=== PATIENT | male | born 1950 | race Caucasian/White ===

== ENCOUNTER 2019-01-13 12:50 | Emergency (ER) | payer MEDICARE, OTHER, SELFPAY ==
[2019-01-13 12:51] VITALS: BP 102/67; PULSE 116; RESP 18; TEMP 36.6; O2SAT 98; BMI 28.8
--- NOTE | 2019-01-13 13:45 | ED.VIS.GEN ---
History of Present Illness Chief Complaint: Constipation Informant: Patient Onset: Days - 12 Context: Gradual Onset Timing: Continuous Current Severity: Moderate Maximum Severity: Moderate Narrative: Patient presents with constipation. He had back surgery 2 weeks ago. He has not had a bowel movement in a few days in fact he is only had 2 bowel movement since surgery. He has been on quite a few opiates. He denies any abdominal pain, nausea or vomiting fever or chills. Prior similar symptoms: No Past Medical History - Allergies and Home Meds Allergies/Adverse Reactions: Allergies No Known Allergies Allergy (Verified 01/13/19 12:54) Past Medical History: - - Reviewed Surgical History: - - Back surgery 12 days ago as in HPI Lives: Spouse/ Significant Other Review of Systems General: Denies: Fever Eyes: Denies: Visual changes - left Cardiovascular: Denies: Chest pain, Palpitations Respiratory: Denies: Dyspnea, Cough Gastrointestinal: Reports: Constipation. Denies: Abdominal pain, Nausea Genitourinary: Denies: Dysuria Musculoskeletal: Reports: Back pain Neurological: Denies: Weakness Hematologic: Denies: Easy bruising Physical Exam Vital Signs/Narrative: Vital Signs Temp Pulse Resp BP Pulse Ox 01/13/19 12:51 98 F 116 H 18 102/67 98 General: Well nourished, Well developed, - - He is standing up, ambulating with his back slightly bent, he appears in slight distress Head: Normocephalic, Atraumatic Cardiovascular: Regular rate, Regular rhythm Respiratory: No distress, CTA bilaterally Abdomen: Soft, Nontender Rectal: - - Stool impaction Back: - - Spinal tenderness, posterior incision is intact no signs of cellulitis Skin: No rash Neurological: Alert, Oriented x3 Diagnostic/Tx/Re-eval - Medical Decision Making Patient was disimpacted. He did tolerate the procedure. He felt significantly improved I will discharge him in stable condition. ED Disposition - Plan for ED Patient: Diagnosis: Constipation Instructions: CONSTIPATION (Adult), FECAL IMPACTION, Treated Prescriptions: Polyethylene Glycol 3350 [Miralax] 17 gm PO DAILY #6 packet Prescription Printed
== END 2019-01-13 14:18 | disposition home or self-care (01) ==
PROVIDERS: Emergency Provider Emergency Medicine; Family Provider Family Medicine; PCP Family Medicine
DX: K59.00 Constipation, unspecified (principal)
CPT/HCPCS: 99282

== ENCOUNTER 2019-04-28 14:30 | Outpatient (RCR) | payer MEDICARE, OTHER, SELFPAY ==
--- NOTE | 2019-02-05 15:49 | HP.PTEVAL_ITS ---
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 Date of Evaluation: 02/05/19 Physical Therapist: Fabiana Montano, PT, Cert MDT - Visit Plan Frequency: 2-3x /Week Duration: 4-6 Weeks Plan: POSTURE CORRECTION/STRENGTHENING, INSTRUCTION IN APPROPRIATE BODY MECHANICS AND ACTIVITY MODIFICATIONS. DLS STARTING WITH A NEUTRAL SPINE PROGRESSING ROM TOLERATED. ABBI LE ROM, STRETCHING AND STRENGTHENING. HEP INSTRUCTION. *NO LIFTING, BENDING, PUSHING, PULLING, TWISTING AND OVER HEAD EXTENSION FOR 3 WEEKS. 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 SOME PHYSICAL WORK AND SOME OFFICE WORK. CURRENTLY MAINLY JUST DOING OFFICE WORK. MUSICIAN. Disability: NO. Present symptoms: NO LOW BACK PAIN. INTERMITENT ABBI HIP/THIGH SORENESS. NO NUMBNESS OR TINGLING. Present since: YEARS (APPROX SEPTEMBER 2018 INCREASED SX'S REACHING FOR DOG). Pain Scale: WORST 3/10, LEAST 0/10. Currently: 0/10. Commenced as a result of: REPETATIVE BENDING, LIFTING, TWISTIING. Symptoms at onset: RIGHT THIGH BURNING AND TINGLING. Worse: STANDING IN ONE SPOT, WALKING - MORE SOME TIMES THAN OTHERS, WALKING TOO FAST, WALKING TOO FAR OR LONG. Better: SITTING, ADVIL, ICE. Disturbed sleep: NO. Previous history/Previous treatment: NO OTHER BACK SURGERIES. NO LUPE'S. PHYSICAL THERAPY WITHIN THE PAST YEAR FOR LOW BACK PAIN AT [facility] - SOME IMPROVEMENT BUT DAY AFTER HE STOPPED PT HE HURT HIS BACK LIFTING HIS DOG - THEN MRI AND SURGERY. Coughing/sneezing/straining: NO. Gait: DISTANCE LIMITED, TIME LIMITED AND NOT FAST. LEFT KNEE WEAKER THAN RIGHT (HURT LEFT KNEE IN FOOTBALL LONG TIME AGO). Difficulty initiating urinatin: NO. Accidents: UNREMARKABLE. Unexplained weight loss: NO. Imaging: MRI BEFORE SURGERY SHOWED HNP. PMH: UNREMARKABLE. Recent major surgery: NO. PLOF (Prior Level of Function): LIMITED FOR SEVERAL YEARS IN TERMS OF STANDING, BENDING, LIFTING AND TWISTING. - Objective Sitting/Standing Posture: POOR. Lordosis: REDUCED. Lateral shift: NO. Active Correction of posture: NE. Other Observations: INDEP GAIT INTO PT WITH LUMBAR BRACE, FAIR CADANCE AND FAIR POSTURE. NO LOB. Motor deficit: ABBI LE STRENGTH 5/5 WITH MMT'ING EXCEPT RIGHT HIP 4/5, LEFT HIP 4-/5 AND LEFT KNEE 4/5. Sensory deficit: NO. ROM deficit: VERY TIGHT ABBI HS'S AND GASTROC SOLEUS COMPLEX'S. Reflexes: 1/2 ABBI LE'S. Dural Signs: NEGATIVE. Lumbar mvmt loss: NT. Core strength: POOR. Palpation: INCISION LOOKS GOOD WITHOUT ANY SIGNS OF INFECTION. - Goals Goal 1:: DECREASE C/O ABBI LE SX'S. Goal Time Frame: 4-6 Weeks Goal 2:: IMPROVE BENDING, LIFTING, WALKING, SITTING, STANDING, SOCIAL LIFE, TRAVEL AND WORK FUNCTION Goal Time Frame: 4-6 Weeks Goal 3:: INSTRUCT IN PROPHYLAXIS Goal Time Frame: 4-6 Weeks - Rehabilitation Potential Rehabilitation Potential: Good - Anticipated Interventions Patient/Client Instruction: Educate patient on: Condition, Plan of Care, Risk Factors, Benefits of Fitness Program For the Purpose of:: To improve self management Therapeutic Exercise to Include: Strength training, Endurance training, Body mechanics, Postural training, Flexibilty training, Dynamic Lumbar Stabilization For the Purpose of:: To decrease pain, To increase ROM, To improve muscle performance and motor function, To increase tolerance to activity/condition/position, To improve ability of physical actions for home/community/work/leisure, To improve gait and locomotor functions Thank you for the opportunity to evaluate your patient. For Medicare and Medicare HMO plans, please review the plan of care and approve it. It will need to be FAXED BACK to us at [phone] for Medicare purposes. For Medicare only, by signing this I certify the plan of care. Please let me know if there are questions or concerns regarding this plan of care. Physician Signature: Date:
--- NOTE | 2019-03-03 14:54 | HP.PTREVAL ---
Lore Donahue, PROFESSOR OF VEGETABLE SCIENCE-C, It has been my pleasure to treat ELIZA BROOKS over the last 10 visits for LUMBAR HNP - S/P ABBI POST MICRO DEMP AND DISCECTOMY L345S1 01/01/19.. Please see the progress note below for an update on the physical therapy plan of care! Subjective: PATIENT REPORTS HIS LEGS ARE GETTING STRONGER. HE WAS SURPRISED HOW WEAK THEY WERE AFTER SURGERY. PATIENT REPORTS HE STILL CAN'T DO SOME THINGS LIKE GET UP AND DOWN FROM CHAIRS AND IN/OUT OF CAR. STAIRS ARE GETTING EASIER. ONLY WEARING BRACE OUT OF HOUSE NOW. LOW BACK PAIN AT WORST NOW IS 4/10 AND THAT IS WITH A LOT OF WAKLING (25 MINUTES OR MORE). Objective/Function: PATIENT IS IMPROVING AND IS A GOOD CANDIDATE TO CONTINUE PT WORKING TOWARD THE SAME GOALS WITH THE SAME POC. HE IS AGREEABLE. HE TOLERATED ALL EX'S WELL AND DEMONSTRATED AND COMMUNICATED A GOOD UNDERSTANDING OF ALL INSTRUCTIONS AFTER GIVEN. UPON EXAM TODAY: HE DEMO'S. INDEP GAIT INTO PT WITH LUMBAR BRACE, GOOD CADANCE AND FAIR POSTURE. CADANCE IS IMPROVING. NO LOB. Motor deficit: ABBI LE STRENGTH 5/5 WITH MMT'ING. Sensory deficit: NO. ROM deficit: STILL VERY TIGHT ABBI HS'S AND GASTROC SOLEUS COMPLEX'S. Dural Signs: NEGATIVE. Lumbar mvmt loss: FLEX - MOD. EXT - MITCHELL. RIGHT SG - MITCHELL. LEFT SG - MITCHELL. Core strength: POOR. Palpation: INCISION STILL LOOKS GOOD WITHOUT ANY SIGNS OF INFECTION. Plan Plan: CONT PT DECREASING TO 2 TIMES A WEEK X 4 WEEKS FOR POSTURE CORRECTION/STRENGTHENING, INSTRUCTION IN APPROPRIATE BODY MECHANICS AND ACTIVITY MODIFICATIONS. DLS STARTING WITH A NEUTRAL SPINE PROGRESSING ROM TOLERATED. ABBI LE ROM, STRETCHING AND STRENGTHENING. HEP INSTRUCTION. Goals Goal 1:: DECREASE C/O ABBI LE SX'S. Goal Time Frame: 4-6 Weeks Goal Progress: Progressing Goal 2:: IMPROVE BENDING, LIFTING, WALKING, SITTING, STANDING, SOCIAL LIFE, TRAVEL AND WORK FUNCTION Goal Time Frame: 4-6 Weeks Goal Progress: Progressing Goal 3:: INSTRUCT IN PROPHYLAXIS Goal Time Frame: 4-6 Weeks Goal Progress: Progressing Anticipated Interventions Patient/Client Instruction: Educate patient on: Condition, Plan of Care, Risk Factors, Benefits of Fitness Program For the Purpose of:: To improve self management Therapeutic Exercise to Include: Strength training, Endurance training, Body mechanics, Postural training, Flexibilty training, Dynamic Lumbar Stabilization For the Purpose of:: To decrease pain, To increase ROM, To improve muscle performance and motor function, To increase tolerance to activity/condition/position, To improve ability of physical actions for home/community/work/leisure, To improve gait and locomotor functions Please do not hesitate to contact me at [phone] by phone or if you have questions or concerns regarding this new plan of care! Sincerely, Fabiana Montano, PT, Cert MDT
--- NOTE | 2019-03-28 15:00 | HP.PTREVAL ---
Lore Donahue, SHIPPER RECEIVER-C, It has been my pleasure to treat ELIZA BROOKS over the last 18 visits for LUMBAR HNP - S/P ABBI POST MICRO DEMP AND DISCECTOMY L3-4-5-S1 on 01/01/19. Please see the progress note below for an update on the physical therapy plan of care! Subjective: PATIENT REPORTS HE REALLY FEELS LIKE HE HAS MADE A LOT OF PROGRESS THIS SECOND ROUND OF THERAPY. HE REPORTS HIS WALKING IS A LOT BETTER NOW. STATES HE CAN GO FURTHER AND FASTER. STANDING STILL WAS HORRIBLE BEFORE AND AFTER SURGERY AND IS A LOT BETTER NOW. A LITTLE BETTER WITH THE BELT ON BUT EVEN THOUGH TOUGHER WITHOUT THE BELT MUCH BETTER OVER-ALL. HE REPORTS NOTICING IMPROVED STANDING AND WALKING AT WORK FOR THINGS LIKE GETTING THE SAUCE ON THE STOVE, PAYING VENDORS, ACCEPTING DELIVERIES. DOING A LITTLE BIT OF LIFTING TOO BUT NOT PUSHING IT. OUT OF BRACE MOST OF THE TIME NOW. PATIENT REPORTS HE CAN'T REMEMBER THE LAST TIME HE WAS DOING THIS GOOD. Objective/Function: PATIENT IS IMPROVING. HE IS STARTING TO BE INDEP WITH A HEP BUT WOULD BENEFIT FROM FURHTER INSTRUCTION HE TRIES TO TRANSITION TO INDEP [employer] FOR PROGRESSIONS BASED ON ROOM FOR FURTHER IMPROVEMENT. INDEP SIT TO STAND WITHOUT UE ASSIST. PATIENT ONLY ABLE TO SLS FOR A FEW SECONDS ON EACH LEG WITHOUT UE ASSIST AND GREATER DIFFICULTY LEFT COMPARED TO RIGHT. Lumbar mvmt loss: FLEX - MOD. EXT - MITCHELL. RIGHT SG - MITCHELL. LEFT SG - MITCHELL Plan Plan: CONT PT 1X/WEEK TO CONTINUE TO PROGRESS THER EX AND HELP PATIENT TRANSITION FULLY TO INDEP EX WITH [employer]. PATIENT AGREEABLE. Goals Goal 1:: DECREASE C/O ABBI LE SX'S. Goal Time Frame: 4-6 Weeks Goal Progress: Progressing Goal 2:: IMPROVE BENDING, LIFTING, WALKING, SITTING, STANDING, SOCIAL LIFE, TRAVEL AND WORK FUNCTION Goal Time Frame: 4-6 Weeks Goal Progress: Progressing Goal 3:: INSTRUCT IN PROPHYLAXIS Goal Time Frame: 4-6 Weeks Goal Progress: Progressing Anticipated Interventions Patient/Client Instruction: Educate patient on: Condition, Plan of Care, Risk Factors, Benefits of Fitness Program For the Purpose of:: To improve self management Therapeutic Exercise to Include: Strength training, Endurance training, Body mechanics, Postural training, Flexibilty training, Dynamic Lumbar Stabilization For the Purpose of:: To decrease pain, To increase ROM, To improve muscle performance and motor function, To increase tolerance to activity/condition/position, To improve ability of physical actions for home/community/work/leisure, To improve gait and locomotor functions Please do not hesitate to contact me at [phone] by phone or if you have questions or concerns regarding this new plan of care! Sincerely, Fabiana Montano, PT, Cert MDT
--- NOTE | 2019-04-28 14:59 | HP.PTDCSUM ---
HP - PT D/C Summary It has been my pleasure to treat ELIZA BROOKS under orders from SHARMAINE Cui, for the diagnosis of LUMBAR HNP - S/P ABBI POST MICRO DEMP AND DISCECTOMY L3-4-5-S1 on 01/01/19 for a total of 22 visit(s). Discharge Date: 04/28/19 Please see the following information for a summary of their discharge status. - Subjective Subjective: PATIENT REPORTS HE IS DOING GOOD OVER-ALL. PROLONGED SITTING AND STANDING ARE STILL THE HARDEST TO TOLERATE ALTHOUGH NOW HE CAN DO EVERYTHING WITHOUT THE BRACE. - Pain Lumbar spine Pain Intensity (Out of 10): 0 Thoracic Spine Pain Intensity (Out of 10): 0 - Overall Improvement % Improvement: 80 - Objective Objective/Function: PATIENT IS INDEP WITH A GYM PROGAM AND APPROPRIATE FOR DISCHARGE AT THIS TIME. UPON EXAM TODAY: INDEP SIT TO STAND WITHOUT UE ASSIST. PATIENT NOW ABLE TO SLS FOR A FEW SECONDS ON EACH LEG WITHOUT UE ASSIST BETTER BUT GREATER DIFFICULTY LEFT COMPARED TO RIGHT. Lumbar mvmt loss: FLEX - MOD. EXT - MITCHELL. RIGHT SG - MITCHELL. LEFT SG - MITCHELL - Goals Goal 1:: DECREASE C/O ABBI LE SX'S. Goal Progress: Goal Met Goal 2:: IMPROVE BENDING, LIFTING, WALKING, SITTING, STANDING, SOCIAL LIFE, TRAVEL AND WORK FUNCTION Goal Progress: Goal Met Goal 3:: INSTRUCT IN PROPHYLAXIS Goal Progress: Goal Met - Plan Plan: D/C - D/C Information If there are questions or concerns regarding this patient's physical therapy, please feel free to call me at [phone]. Thank you for the referral of this patient. Sincerely, Fabiana Montano, PT, Cert MDT
== END 2019-04-28 19:00 | disposition home or self-care (01) ==
LOC: PT 14:30
PROVIDERS: Family Provider Family Medicine; PCP Family Medicine; Referring Provider Nurse Practitioner Acute Care; Visit Provider Nurse Practitioner Acute Care
DX: M51.26 Other intervertebral disc displacement, lumbar region (principal)
CPT/HCPCS: 97110; 97161; 97530

== ENCOUNTER 2020-07-22 06:43 | Outpatient (RCR) | payer MEDICARE, OTHER, SELFPAY ==
[2020-07-22] MEDS: COVID-19 VACC, MRNA(PFIZER)/PF 30 MCG/0.3 ML SYRINGE IM (18:01)
[2020-08-12] MEDS: COVID-19 VACC, MRNA(PFIZER)/PF 30 MCG/0.3 ML SYRINGE IM (17:34)
== END 2020-10-26 23:59 ==
LOC: IMMUN 06:43
PROVIDERS: PCP Family Medicine; Visit Provider Family Medicine
DX: Z23 Encounter for immunization (principal)
CPT/HCPCS: 0001A; 0002A; 91300

== ENCOUNTER 2023-11-08 08:22 | Emergency (ER) | payer MEDICARE, OTHER, SELFPAY ==
[2023-11-08 08:23] VITALS: BP 61/39; PULSE 76; RESP 16; TEMP 35.7; O2SAT 98
--- NOTE | 2023-11-08 08:33 | RAD_ITS ---
STUDY: X-RAY - LEFT HAND, ATTENTION THIRD FINGER REASON FOR EXAM: Male, 73 years old. INJURY TECHNIQUE: 3 view(s) of the finger were obtained. COMPARISON: None. FINDINGS: Normal metacarpal head. Normal metacarpophalangeal joint. Normal proximal phalanx. Normal middle phalanx. Normal distal phalanx. There is evidence of a dorsal dislocation of the proximal interphalangeal joint of the third digit. Normal distal interphalangeal joint. Soft tissue swelling. RAD/Finger(s) Min 2 Views IMPRESSION: Dorsal dislocation of the proximal interphalangeal joint of the third digit. Soft tissue swelling. Electronically Signed: Ernie Steven MD at 9:42 EDT ,
--- NOTE | 2023-11-08 08:33 | EKG12_ITS ---
Test Reason : PALPITATIONS Blood Pressure : / mmHG Vent. Rate : 063 BPM Atrial Rate : 063 BPM P-R Int : 144 ms QRS Dur : 086 ms QT Int : 402 ms P-R-T Axes : 013 017 050 degrees QTc Int : 411 ms Normal sinus rhythm Normal ECG Confirmed by MARA THORPE, MANUEL ([id number]), advertising editor OBI GOMEZ ([id number]) on 11/12/2023 1:30:40 PM Referred By: Confirmed By:MANUEL TERRY MD
[2023-11-08 08:51] LABS: Absolute Neutrophil Count 8.4 X10^3/uL (2.0-7.7); Basophil# 0.02 X10^3/uL; Basophil% 0.2 % (0-1); Eosinophil# 0.03 X10^3/uL; Eosinophils% 0.3 % (0-5); Hematocrit 40.5 % (40-54); Hemoglobin 13.4 g/dL (13.0-16.5); Lymphocyte % 19.1 % (19-41); Mean Corp Hgb Conc 33.1 g/dL (32-36); Mean Corpuscular Hgb 28.9 pg (27.0-32.0); Mean Corpuscular Volume 87.5 fL (80-94); Mean Platelet Vol. 9.6 fl (6.2-12.0); Monocyte# 0.82 X10^3/uL; Monocyte% 7.1 % (0-10); NRBC Flagged by Analyzer 0 % (0-5); Neutrophil # 8.42 X10^3/uL (2.7-7.7); Platelet Count 217 K/mm3 (150-450); RBC Distribution Width CV 13.4 % (11.6-14.6); RBC Distribution Width SD 42.8 fl (35.1-43.9); Red Blood Count 4.63 M/mm3 (4.6-6.2); White Blood Count 11.5 K/mm3 (4.4-11.0)
[2023-11-08] MEDS: 0.9% Normal Saline (500mL Bag) 500 ML 999 ML IV (09:00)
--- NOTE | 2023-11-08 09:08 | RAD_ITS ---
STUDY: X-RAY CHEST REASON FOR EXAM: Male, 73 years old. WEAKNESS TECHNIQUE: Single AP portable view of the chest. COMPARISON: None. FINDINGS: EKG electrodes are seen. The lungs are clear and expanded. There is no demonstrated pleural abnormality. Normal size heart. Normal mediastinum and madina. Normal visualized pulmonary arteries. There is atherosclerotic calcification of the aortic arch with tortuosity. There are diffuse degenerative changes of the visualized thoracic spine. Normal visualized ribs, clavicles, and shoulders. There is no demonstrated abnormality of the visualized soft tissue structures of the upper abdomen. RAD/Chest 1 View (Portable) IMPRESSION: No acute abnormality is seen. Electronically Signed: Ernie Steven MD at 9:42 EDT ,
[2023-11-08 09:23] VITALS: BMI 25.1
[2023-11-08 09:25] VITALS: BP 65/49; PULSE 69; RESP 16; O2SAT 98
[2023-11-08 09:31] LABS: Anion Gap 7 (5-15); BUN 29 mg/dL (7-18); Chloride 108 mmol/L (98-107); Creatinine, Serum 1.16 mg/dL (0.70-1.30); EST Glomerular Filtration Rate 66 mL/min (>60); Est Glom Filt Rate - Afr Amer 80 mL/min (>60); Estimated Creatinine Clearance 63.18 ml/min; Glucose 114 mg/dL (74-106); Sodium Level 141 mmol/L (136-145)
[2023-11-08 09:37] VITALS: O2SAT 99
--- NOTE | 2023-11-08 10:05 | RAD_ITS ---
STUDY: X-RAY - LEFT HAND, ATTENTION THIRD FINGER REASON FOR EXAM: Male, 73 years old. Postreduction -- middle finger TECHNIQUE: 3 view(s) of the finger were obtained. COMPARISON: Comparison is made with prior study done earlier in the day. FINDINGS: Satisfactory reduction. Normal metacarpal head. Normal metacarpophalangeal joint. Normal proximal phalanx. Normal middle phalanx. Normal distal phalanx. Normal proximal interphalangeal joint. Normal distal interphalangeal joint. Soft tissue swelling. RAD/Finger(s) Min 2 Views IMPRESSION: Satisfactory reduction. Residual soft tissue swelling. Electronically Signed: Ernie Steven MD at 11:55 EDT ,
--- NOTE | 2023-11-08 10:08 | ED.VIS.FALL ---
HPI HPI - Fall History of Present Illness Chief Complaint: Fall Informant: patient and family (x2) Narrative Narrative: 73-year-old male was going to the bathroom from his bedroom he felt lightheaded and had a minor fall, family member was there with him, but he fell to the floor injuring his left middle finger. No other injury. Did not lose consciousness. He felt feet not vertiginous. Then getting out of the car while coming to the ER, he felt new disease/lightheaded again. No syncope or other injury/fall. The family states he is on Sinemet he had already taken it this morning right before this happened, oftentimes he is having low blood pressure since he has been on it for his Parkinson's. They state he typically does have dementia but he is maybe a little more confused right now than usual. Did not hit his head, this all was witnessed. He denies a headache and denies any other pain except for his middle finger. [facility] Medical History (Updated 11/08/23 @ 11:[address] Lloyd Spear MD) Parkinson disease Parkinson's disease dementia Home Medications ?Medication ?Instructions ?Recorded ?Last Taken ?Type polyethylene glycol 3350 17 gram 17 gm PO DAILY #6 packets 01/13/19 Unknown Rx oral powder packet carbidopa 25 mg-levodopa 100 mg 2 tab PO TID 11/08/23 Unknown History tablet rivastigmine 13.3 mg/24 hour 1 patch topical DAILY 11/08/23 Unknown History transdermal patch Allergy/AdvReac Type Severity Reaction Status Date / Time No Known Allergies Allergy Verified 11/08/23 08:23 Social History Smoking Status: Unknown if ever smoked ROS ROS ED Constitutional Constitutional ED: Reports weakness; Denies chills or fever(s) Eyes Eyes: Denies change in vision or diplopia ENT ENT ED: Denies rhinorrhea or sore throat Cardiovascular Cardiovascular: Denies chest pain or palpitations Respiratory/Chest Respiratory/Chest: Denies cough or dyspnea Gastrointestinal Gastrointestinal: Denies abdominal pain, diarrhea, nausea or vomiting Genitourinary Genitourinary ED: Denies dysuria or hematuria Musculoskeletal Musculoskeletal: Reports as per HPI and extremity pain; Denies back pain or neck pain Integumentary Denies abscess or rash Neurologic Neurologic: Reports confusion; Denies headache(s), paresthesias or weakness Psychiatric Psychiatric: Denies anxiety or suicidal thoughts EXAM Physical Exam Const Vital Signs: 11/08/23 08:23 11/08/23 09:25 11/08/23 09:37 Temperature 96.2 F L Temperature Source Temporal Pulse Rate 76 69 Respiratory Rate 16 16 Respiratory Effort Normal Non-Labored Respiratory Depth Normal Respiratory Pattern Normal Blood Pressure 61/39 L 65/49 L Blood Pressure Mean 46 54 Pulse Ox 98 98 99 Oxygen Delivery Method Room Air Room Air Room Air 11/08/23 10:22 11/08/23 11:00 11/08/23 11:44 Temperature 98.0 F Temperature Source Pulse Rate 70 70 70 Respiratory Rate 15 18 18 Respiratory Effort Respiratory Depth Respiratory Pattern Blood Pressure 129/84 H 143/73 H 143/73 H Blood Pressure Mean 99 96 96 Pulse Ox 100 99 99 Oxygen Delivery Method Room Air Room Air Positive well nourished and well developed General Appearance ED: well developed and NAD HEENT Reports moist mucous membranes normocephalic and atraumatic; Negative for contusion or hematoma Eyes PERRL and EOMs intact bilaterally Neck full ROM and supple Chest Wall inspection of chest normal and palpation of chest normal Resp normal respiratory effort and clear to auscultation bilaterally Cardio regular rate, regular rhythm and no murmurs GI non-tender and non-distended Auscultation: normoactive bowel sounds Palpation: soft Back/Spine no CVA tenderness General Back: other FROM Extremity Extremity Narrative: Tender deformity to the PIPJ of the left middle finger and limited range of motion due to this. Brisk cap refill distally. All other joints of all 4 extremities move without any problem. General Extremety ED: Yes tenderness; Negative for edema or pulses abnormal General Extremity: Negative for edema or pulses abnormal Neuro CN's II-XII intact bilaterally and no sensory deficits noted Sensorium / Orientation: awake, alert, oriented to person and orientation impaired; Negative for oriented to time Motor Exam: strength 5/5 throughout Skin no rashes or lesions noted and no wounds Skin Narrative: Abrasion to the left scapular area, there is no bony tenderness and he has full range of motion of the shoulder without any difficulty. MDM MDM MDM Narrative Medical decision making narrative: Three-view x-ray series of the left hand on interpretation shows a dislocation without an associated fracture of the PIPJ of the left middle finger. This was reduced and postreduction films were performed showing good reduction see the procedure note. Also give the patient some IV fluids given his low blood pressure and ran some labs in the meantime. After liter of IV fluids, his blood pressure is normalized, systolics around 140. With ambulating to and from the bathroom, he is at his baseline and not feeling lightheaded. He needed a little assistance to stand which is typical for him according to family and he did pretty well. His labs are consistent with prerenal azotemia, explaining why the fluids helped. His EKG is normal. I have ordered a 1 view chest x-ray to rule out pneumonia, on my interpretation it is negative for that, radiology was in agreement. I ordered a CT of the head to rule out a subdural hematoma or other intracranial reason for his confusion given his fall even though he did not hit his head that can happen as I discussed with family, they understand but declined/refused the CT which I am fine with. They also did not want to wait for him to give urinalysis, as has not had any trouble, they think he is disoriented a little more than usual because a combination of his dementia and dehydration and they will bring him back if he gets worse which I am fine with that as well. Advised to follow-up with orthopedics with regards to his finger. Lab Data Attestation: I reviewed the patient's lab results. Labs: Laboratory Results - last 24 hr 11/08/23 08:40 WBC 11.5 H RBC 4.63 Hgb 13.4 Hct 40.5 MCV 87.5 MCH 28.9 MCHC 33.1 RDW Std Deviation 42.8 RDW Coeff of Migue 13.4 Plt Count 217 MPV 9.6 Immature Gran % (Auto) 0.300 Neut % (Auto) 73.0 H Lymph % (Auto) 19.1 [place] % (Auto) 7.1 Eos % (Auto) 0.3 Baso % (Auto) 0.2 Absolute Neuts (auto) 8.4 H Absolute Lymphs (auto) 2.20 Nucleated RBC % 0 Sodium 141 Potassium 4.0 Chloride 108 H Carbon Dioxide 26.0 Anion Gap 7 BUN 29 H Creatinine 1.16 Estim Creat Clear Calc 63.18 Est GFR (MDRD) Af Amer 80 Est GFR (MDRD) Non-Af 66 BUN/Creatinine Ratio 25.0 H Glucose 114 H Calcium 9.0 Radiography Diagnostic Testing: Clinical Impression(s) from Imaging Studies Finger X-Ray 11/08/23 08:33 IMPRESSION: Dorsal dislocation of the proximal interphalangeal joint of the third digit. Soft tissue swelling. Electronically Signed: Ernie Steven MD at 9:42 EDT , Chest X-Ray 11/08/23 09:08 IMPRESSION: No acute abnormality is seen. Electronically Signed: Ernie Steven MD at 9:42 EDT , Finger X-Ray 11/08/23 10:05 IMPRESSION: Satisfactory reduction. Residual soft tissue swelling. Electronically Signed: Ernie Steven MD at 11:55 EDT , Rhythm Strip Rhythm Strip: Sinus Rhythm Rate: 70 Ectopy: None EKG Initial EKG: Attestation: I personally reviewed and interpreted this EKG as follows: Interpretation: Sinus Rhythm and No Acute Injury Pattern Comments: nml EKG Procedures Upper Extremity Splints Upper Extremity Splint: Alumifoam (Palmar aspect left middle finger, applied by nursing customer complaint service supervisor myself, neurovascularly intact distally after placement) Splint Fabrication: Fabricated Location: Left Other Procedures Procedure(s): Closed reduction left middle finger PIPJ dislocation: After verbal consent, I was able to easily manually reduce the joint by recreating the injury and distracting the finger, this was successful on the first attempt patient tolerated well no complications neurovascular intact distally able to move the PIPJ and the DIPJ but limited due to pain and swelling; postreduction films of the finger 3 views of the interpretation show good reduction of fracture. There is a chronic bony/calcific finding that I do not think represents an acute chip fracture. Discharge Plan Triage Chief Complaint: Fall Other Complaint: Upper Extremity Injury ED Provider: Lloyd Spear Dx/Rx/DC Orders Clinical Impression: Orthostatic hypotension due to Parkinson's disease, Mild dehydration, Accidental fall, Dislocation of proximal interphalangeal joint of left middle finger, initial encounter Instructions: ED Finger Dislocation, ED Hypotension, Orthostatic Prescriptions: No Action polyethylene glycol 3350 17 GM packet 17 gm PO DAILY Qty: 6 0RF carbidopa-levodopa 25-100 mg tablet 2 tab PO TID rivastigmine 13.3 mg/24 hour patch 24 hour 1 patch topical DAILY Primary Care Provider: Dave Thomas Referrals: Dave Thomas MD [Primary Care Provider] - 3-5 Days if not improving (With regards to feeling lightheaded/dehydrated/disoriented) Ovidio Diaz MD [Med Staff - Active Staff] - (Next week, call for appointment) Print Language: Tamazight Disposition Disposition: Home, Self Care Discharge Date/Time: 11/08/23 11:45
[2023-11-08 10:22] VITALS: BP 129/84; PULSE 70; RESP 15; O2SAT 100
--- NOTE | 2023-11-08 10:38 | NURSING ---
FAMILY WITH QUESTIONS ON CT ORDERED. DR. MURPHY AWARE AND IN TO EXPLAIN RATIONALE. FAMILY STILL WANTING TO FOREGO. ORDER CANCELLED.
[2023-11-08 11:00] VITALS: BP 143/73; PULSE 70; RESP 18; O2SAT 99
[2023-11-08 11:44] VITALS: BP 143/73; PULSE 70; RESP 18; TEMP 36.7; O2SAT 99
== END 2023-11-08 11:45 | disposition home or self-care (01) ==
PROVIDERS: Emergency Provider Emergency Medicine; PCP Family Medicine; Visit Provider Emergency Medicine
DX: S63.283A Dislocation of proximal interphalangeal joint of left middle finger, initial encounter (principal); G20.C Parkinsonism, unspecified; F02.80 Dementia in other diseases classified elsewhere, unspecified severity, without behavioral disturbance, psychotic disturbance, mood disturbance, and anxiety; E86.0 Dehydration; I95.1 Orthostatic hypotension; W18.30XA Fall on same level, unspecified, initial encounter; Y92.012 Bathroom of single-family (private) house as the place of occurrence of the external cause
CPT/HCPCS: 26770; 71045; 73140; 80048; 85025; 93005; 99285; J7030

== ENCOUNTER 2023-12-17 16:54 | Emergency (ER) | payer MEDICARE, OTHER, SELFPAY ==
[2023-12-17 16:55] VITALS: BP 93/77; PULSE 82; RESP 18; TEMP 36.8; O2SAT 92; BMI 28.3
--- NOTE | 2023-12-17 17:33 | CT_ITS ---
STUDY: CT ABDOMEN AND PELVIS WITH CONTRAST REASON FOR EXAM: Male, 73 years old. abdomial pain RADIATION DOSAGE (If Supplied By Facility): CTDIvol = ( 15.93 ) mGy, DLP = ( 1085.41 ) mGycm TECHNIQUE: Transaxial images were obtained from the dome of the diaphragm to the symphysis pubis without oral contrast. IV 100mL Isovue-370 was administered. Sagittal and coronal images were reconstructed. Individualized dose optimization techniques were used for this CT. COMPARISON: None. FINDINGS: The visualized lung bases are unremarkable. The visualized portions of the heart are within normal limits. Normal liver. Normal gallbladder and extrahepatic biliary system. Normal spleen. Normal pancreas. Normal bilateral adrenal glands. Normal right kidney. Normal left kidney. Normal visualized stomach. Normal small intestine. Normal colon. The appendix is nonvisualized. Normal abdominal aorta. Normal inferior vena cava. Normal retroperitoneum. Normal urinary bladder. Normal abdominal wall. Degenerative vertebral changes. CT/Abdomen/Pelvis W IV Cont ONLY IMPRESSION: Normal enhanced CT of the abdomen and pelvis. Electronically Signed: Noam Mosquera DO at 20:47 EDT Reading Location ID and State: [facility] / [place] Tel [phone], Service support ,
[2023-12-17] MEDS: 0.9% Normal Saline (1000mL) 1,000 ML 999 ML IV (17:41)
--- NOTE | 2023-12-17 18:36 | ED.RN ---
ISSUE WITH LABELS PRINTING AND LAB SEEING ORDERS. CALLED DOWN TO THE LAB TO UPDATE CURRENT BLOOD SENT. NOTIFYING ONCOMING STAFF TO USE DOWNTIME PAPERWORK FOR LABS UNTIL CORRECTED. IT WORKING ON IT
[2023-12-17 19:17] VITALS: BP 134/84; PULSE 73; RESP 16; TEMP 36.7; O2SAT 95
[2023-12-17 19:18] LABS: Anion Gap 3 (5-15); BUN/Creat Ratio 23.1 RATIO (10-20); Calcium,Total 9.2 mg/dL (8.5-10.1)
[2023-12-17 19:21] LABS: Absolute Lymphocyte Count 1.34 X10^3/uL (0.83-4.51); Absolute Neutrophil Count 11.1 X10^3/uL (2.0-7.7); Basophil# 0.01 X10^3/uL; Basophil% 0.1 % (0-1); Eosinophil# 0.02 X10^3/uL; Eosinophils% 0.2 % (0-5); Hematocrit 40.1 % (40-54); Hemoglobin 13.4 g/dL (13.0-16.5); Lymphocyte # 1.34 X10^3/ul (0.83-4.51); Lymphocyte % 10.2 % (19-41); Mean Corp Hgb Conc 33.4 g/dL (32-36); Mean Corpuscular Hgb 29.3 pg (27.0-32.0); Mean Corpuscular Volume 87.7 fL (80-94); Mean Platelet Vol. 9.9 fl (6.2-12.0); Monocyte# 0.58 X10^3/uL; Monocyte% 4.4 % (0-10); NRBC Flagged by Analyzer 0 % (0-5); Neutrophil % 84.6 % (47-70); Platelet Count 238 K/mm3 (150-450); RBC Distribution Width CV 13.2 % (11.6-14.6); RBC Distribution Width SD 42.6 fl (35.1-43.9); Red Blood Count 4.57 M/mm3 (4.6-6.2); White Blood Count 13.1 K/mm3 (4.4-11.0)
[2023-12-17 19:34] LABS: ALB/GLOB Ratio 1.1 RATIO (0.9-2.4); AST(SGOT) 28 U/L (15-37); Alanine Aminotransfer ALT/SGPT 17 U/L (16-61); Albumin, Serum 3.7 g/dL (3.2-5.0); Alkaline Phosphatase 144 U/L (45-117); BUN 26 mg/dL (7-18); Chloride 106 mmol/L (98-107); Creatinine, Serum 1.19 mg/dL (0.70-1.30); EST Glomerular Filtration Rate 64 mL/min (>60); Est Glom Filt Rate - Afr Amer 77 mL/min (>60); Estimated Creatinine Clearance 57.54 ml/min; Globulin 3.4 g/dL (2.2-4.2); Glucose 109 mg/dL (74-106); Lipase 27 U/L (13-75); Potassium 4.1 mmol/L (3.5-5.1); Protein, Total 7.1 g/dL (6.4-8.2); Sodium Level 137 mmol/L (136-145)
--- NOTE | 2023-12-17 20:57 | EDS_ITS ---
HPI HPI - GI History of Present Illness Chief Complaint: Constipation Narrative Narrative: 73-year-old man presenting with abdominal pain and constipation. Patient is only had small hard stools since yesterday. Patient is a poor informant because he has dementia. He is here with his caregiver. He states he has been complaining of pain. He has not had any nausea or vomiting. He has not had a fever. PFSH PFS Medical History Parkinson disease Parkinson's disease dementia Home Medications ?Medication ?Instructions ?Recorded ?Last Taken ?Type polyethylene glycol 3350 17 gram 17 gm PO DAILY #6 packets 01/13/19 Unknown Rx oral powder packet carbidopa 25 mg-levodopa 100 mg 2 tab PO TID 11/08/23 Unknown History tablet rivastigmine 13.3 mg/24 hour 1 patch topical DAILY 11/08/23 Unknown History transdermal patch Allergy/AdvReac Type Severity Reaction Status Date / Time No Known Allergies Allergy Verified 12/17/23 17:16 Social History Smoking Status: Unknown if ever smoked ROS ROS ED Constitutional Constitutional ED: Denies chills, fever(s) or sweats Eyes Eyes: Denies blurry vision or change in vision ENT ENT ED: Denies ear pain or sore throat Cardiovascular Cardiovascular: Denies chest pain, palpitations or racing heartbeat Respiratory/Chest Respiratory/Chest: Denies cough, dyspnea or sputum Gastrointestinal Gastrointestinal: Reports abdominal pain and constipation; Denies diarrhea, nausea or vomiting Genitourinary Genitourinary ED: Denies dysuria, hematuria or urinary frequency Musculoskeletal Musculoskeletal: Denies arthralgias, myalgias or neck pain Integumentary Denies abscess, Abrasions or rash Neurologic Neurologic: Denies headache(s), paresthesias or weakness Psychiatric Psychiatric: Denies anxiety, depression, suicidal ideation or suicidal thoughts Endocrine Endocrinology: Denies polydipsia or polyuria EXAM Physical Exam Const Vital Signs: 12/17/23 16:55 12/17/23 19:17 12/17/23 21:01 Temperature 98.2 F 98.1 F 98.1 F Temperature Source Temporal Oral Pulse Rate 82 73 74 Respiratory Rate 18 16 16 Blood Pressure 93/77 134/84 H 130/81 H Blood Pressure Mean 82 100 97 Pulse Ox 92 95 96 Oxygen Delivery Method Room Air Room Air Positive well nourished General Appearance ED: Negative for pallor HEENT Reports moist mucous membranes normocephalic Eyes PERRL and EOMs intact bilaterally Resp normal respiratory effort Auscultation: Negative for rales, rhonchi or wheezes Cardio regular rate and regular rhythm GI Palpation: soft; Negative for guarding, rigid or hepatomegaly Neuro CN's II-XII intact bilaterally Sensorium / Orientation: alert Psych mental status grossly normal Skin General Skin Exam: Negative for jaundice or pallor MDM MDM MDM Narrative Medical decision making narrative: Patient presenting with abdominal pain. He has been constipated. He abdominal exam is benign however he is a poor informant and has dementia. Patient presenting with right flank pain. Differential includes colitis, diverticulitis, gastritis, pancreatitis, constipation, UTI, pyelonephritis, renal calculi, ureteral calculi, bowel obstruction, malignancy, dehydration, electrolyte abnormalities. CBC shows mild leukocytosis at 13.1. Hemoglobin stable at 13.4. Platelets are normal at 238. Renal function and normal limits. LFTs are normal with exception of alkaline phosphatase 144. Lipase is normal. Initially I did not want to give him any pain medication but he complained of pain. I did give him morphine and Zofran. Patient had a large bowel movement in the room x 2. CT of the abdomen pelvis with IV contrast was obtained and does not show anything acute. I suspect his pain was from constipation. Return precautions were discussed. Discharged with his family Impression: 1. Constipation 2. Abdominal pain Lab Data Attestation: I reviewed the patient's lab results. Labs: Laboratory Results - last 24 hr 12/17/23 17:46 WBC 13.1 H RBC 4.57 L Hgb 13.4 Hct 40.1 MCV 87.7 MCH 29.3 MCHC 33.4 RDW Std Deviation 42.6 RDW Coeff of Migue 13.2 Plt Count 238 MPV 9.9 Immature Gran % (Auto) 0.500 Neut % (Auto) 84.6 H Lymph % (Auto) 10.2 L Perkins % (Auto) 4.4 Eos % (Auto) 0.2 Baso % (Auto) 0.1 Absolute Neuts (auto) 11.1 H Absolute Lymphs (auto) 1.34 Nucleated RBC % 0 Sodium 137 Potassium 4.1 Chloride 106 Carbon Dioxide 26.0 Anion Gap 3 L BUN 26 H Creatinine 1.19 Estim Creat Clear Calc 57.54 Est GFR (MDRD) Af Amer 77 Est GFR (MDRD) Non-Af 64 BUN/Creatinine Ratio 23.1 H Glucose 109 H Calcium 9.2 Total Bilirubin 0.40 AST 28 ALT 17 Alkaline Phosphatase 144 H Total Protein 7.1 Albumin 3.7 Globulin 3.4 Albumin/Globulin Ratio 1.1 Lipase 27 Radiography Diagnostic Testing: Clinical Impression(s) from Imaging Studies Abdomen/Pelvis CT 12/17/23 17:33 IMPRESSION: Normal enhanced CT of the abdomen and pelvis. Electronically Signed: Noam Mosquera DO at 20:47 EDT Reading Location ID and State: [facility] / [place] Tel [phone], Service support , Discharge Plan Triage Chief Complaint: Constipation ED Provider: Harpreet Rojas Dx/Rx/DC Orders Instructions: ED Constipation (Adult) Prescriptions: No Action polyethylene glycol 3350 17 GM packet 17 gm PO DAILY Qty: 6 0RF carbidopa-levodopa 25-100 mg tablet 2 tab PO TID rivastigmine 13.3 mg/24 hour patch 24 hour 1 patch topical DAILY Primary Care Provider: Dave Thomas Referrals: Dave Thomas MD [Primary Care Provider] - Print Language: Tamazight Disposition Disposition: Home, Self Care Discharge Date/Time: 12/17/23 21:00
[2023-12-17 21:01] VITALS: BP 130/81; PULSE 74; RESP 16; TEMP 36.7; O2SAT 96
== END 2023-12-17 21:00 | disposition home or self-care (01) ==
PROVIDERS: Emergency Provider Student in an Organized Health Care Education/Training Program; PCP Family Medicine; Visit Provider Student in an Organized Health Care Education/Training Program
DX: K59.00 Constipation, unspecified (principal); G20.A1 Parkinson's disease without dyskinesia, without mention of fluctuations; F02.80 Dementia in other diseases classified elsewhere, unspecified severity, without behavioral disturbance, psychotic disturbance, mood disturbance, and anxiety; R10.9 Unspecified abdominal pain
CPT/HCPCS: 74177; 80053; 83690; 85025; 96361; 96374; 99283; J7030; Q9967; A4216

== ENCOUNTER 2025-04-13 12:02 | Emergency (ER) | payer MEDICARE, OTHER, SELFPAY ==
[2025-04-13] VITALS (13 sets, daily range): BP systolic 102–160; BP diastolic 70–117; PULSE 61–90; RESP 12–23; TEMP 35.8–36.7; O2SAT 99–100; BMI 27.8
--- NOTE | 2025-04-13 12:42 | EKG12_ITS ---
Test Reason : Blood Pressure : */* mmHG Vent. Rate : 69 BPM Atrial Rate : 69 BPM P-R Int : 104 ms QRS Dur : 102 ms QT Int : 420 ms P-R-T Axes : 6 4 44 degrees QTcB Int : 450 ms Sinus rhythm with short WI Otherwise normal ECG Confirmed by MARA THORPE, MANUEL ([id number]), commissioning editor OBI GOMEZ ([id number]) on 04/15/2025 9:10:08 AM Referred By: Confirmed By: MANUEL TERRY MD
--- NOTE | 2025-04-13 12:43 | EDS_ITS ---
HPI History of Present Illness Chief Complaint: Hypotension Informant: patient, spouse/S.O. and family Narrative Narrative: Patient is a 74-year-old male with a history of Parkinson's disease presenting with hypotension. Patient is accompanied by his and son, who are supplementing history. - Patient's reports that the patient's blood pressure was measured at 64/49 mmHg by his physical therapist prior to activity today. - Patient had taken midodrine approximately one hour before the blood pressure measurement. - Patient's reports that his blood pressure typically remains in the double digits, with systolic readings rarely exceeding 100 mmHg. - Patient denies feeling particularly unwell this morning, but reports feeling weak, which is unusual for him. - Patient has been drinking water over the past 1-2 hours since the low reading. - Patient has a fungal infection in the left great toe, for which he has been taking oral terbinafine since 03/13. - Patient's reports that the palliative care physician recently changed the timing of the terbinafine administration from evening to morning. [facility] Medical History Hypotension Spinal stenosis Parkinson disease Parkinson's disease dementia Home Medications Medication Instructions Recorded Last Taken Type carbidopa 25 mg-levodopa 100 mg 2 tab PO TID 11/08/23 Unknown History tablet rivastigmine 13.3 mg/24 hour 1 patch topical DAILY Unknown History transdermal patch memantine 10 mg tablet 10 mg PO BID 04/13/25 Unknow n History midodrine 5 mg tablet 5 mg PO DAILY 04/13/25 Unkno wn History terbinafine HCl 250 mg tablet 250 mg PO DAILY fungal i nfection 04/13/25 Unknown History of left foot Allergy/AdvReac Type Severity Reaction Status Date / Time No Known Allergies Allergy Verified 04/13/25 12:07 Surgical History Previous back surgery Social History Smoking Status: Former smoker ROS ROS ED Review of Systems ROS Unobtainable: other Details: Limited due to Parkinson's dementia Constitutional Constitutional ED: Reports fatigue; Denies chills or fever(s) Eyes Eyes: Denies change in vision ENT ENT ED: Denies ear pain, rhinorrhea or sore throat Cardiovascular Cardiovascular: Denies chest pain Respiratory/Chest Respiratory/Chest: Denies cough or dyspnea Gastrointestinal Gastrointestinal: Denies abdominal pain, diarrhea, nausea or vomiting Genitourinary Genitourinary ED: Denies dysuria Musculoskeletal Musculoskeletal: Denies back pain or neck pain Integumentary Denies rash Neurologic Neurologic: Denies headache(s) or paresthesias EXAM Physical Exam Const Vital Signs: 04/13/25 12:05 04/13/25 12:16 04/13/25 12:19 Temperature 96.5 F L Temperature Source Temporal Pulse Rate 78 71 Pulse Rate [Lying] Pulse Rate [Sitting (for 1 minute prior to obtaining)] Pulse Rate [Standing (for 1 minute prior to obtaining)] Respiratory Rate 16 14 Respiratory Effort Normal Respiratory Pattern Normal Blood Pressure 120/70 136/80 H Blood Pressure [Lying] Blood Pressure [Sitting (for 1 minute prior to obtaining)] Blood Pressure [Standing (for 1 minute prior to obtaining)] Blood Pressure Mean 86 98 Blood Pressure Mean [Lying] Blood Pressure Mean [Sitting (for 1 minute prior to obtaining)] Blood Pressure Mean [Standing (for 1 minute prior to obtaining)] Pulse Ox 100 100 Oxygen Delivery Method Room Air Room Air 04/13/25 13:13 04/13/25 14:10 04/13/25 14:15 Temperature Temperature Source Pulse Rate 64 Pulse Rate [Lying] 90 Pulse Rate [Sitting (for 1 minute prior to obtaining)] 74 Pulse Rate [Standing (for 1 minute prior to obtaining)] 80 Respiratory Rate 12 16 Respiratory Effort Respiratory Pattern Blood Pressure 129/117 H Blood Pressure [Lying] 153/83 H Blood Pressure [Sitting (for 1 minute prior to obtaining)] 136/82 H Blood Pressure [Standing (for 1 minute prior to obtaining)] 102/74 Blood Pressure Mean 123 Blood Pressure Mean [Lying] 106 Blood Pressure Mean [Sitting (for 1 minute prior to obtaining)] 100 Blood Pressure Mean [Standing (for 1 minute prior to obtaining)] 83 Pulse Ox 100 99 Oxygen Delivery Method 04/13/25 14:30 04/13/25 14:45 04/13/25 15:00 Temperature Temperature Source Pulse Rate 85 79 Pulse Rate [Lying] Pulse Rate [Sitting (for 1 minute prior to obtaining)] Pulse Rate [Standing (for 1 minute prior to obtaining)] Respiratory Rate 23 H 16 16 Respiratory Effort Respiratory Pattern Blood Pressure Blood Pressure [Lying] Blood Pressure [Sitting (for 1 minute prior to obtaining)] Blood Pressure [Standing (for 1 minute prior to obtaining)] Blood Pressure Mean Blood Pressure Mean [Lying] Blood Pressure Mean [Sitting (for 1 minute prior to obtaining)] Blood Pressure Mean [Standing (for 1 minute prior to obtaining)] Pulse Ox Oxygen Delivery Method 04/13/25 15:15 04/13/25 15:30 04/13/25 15:45 Temperature Temperature Source Pulse Rate 84 72 67 Pulse Rate [Lying] Pulse Rate [Sitting (for 1 minute prior to obtaining)] Pulse Rate [Standing (for 1 minute prior to obtaining)] Respiratory Rate 15 17 14 Respiratory Effort Respiratory Pattern Blood Pressure Blood Pressure [Lying] Blood Pressure [Sitting (for 1 minute prior to obtaining)] Blood Pressure [Standing (for 1 minute prior to obtaining)] Blood Pressure Mean Blood Pressure Mean [Lying] Blood Pressure Mean [Sitting (for 1 minute prior to obtaining)] Blood Pressure Mean [Standing (for 1 minute prior to obtaining)] Pulse Ox Oxygen Delivery Method 04/13/25 16:10 04/13/25 16:49 Temperature 98.0 F Temperature Source Pulse Rate 61 Pulse Rate [Lying] 74 Pulse Rate [Sitting (for 1 minute prior to obtaining)] 71 Pulse Rate [Standing (for 1 minute prior to obtaining)] 66 Respiratory Rate 16 Respiratory Effort Respiratory Pattern Blood Pressure 144/80 H Blood Pressure [Lying] 151/83 H Blood Pressure [Sitting (for 1 minute prior to obtaining)] 160/78 H Blood Pressure [Standing (for 1 minute prior to obtaining)] 139/85 H Blood Pressure Mean 101 Blood Pressure Mean [Lying] 105 Blood Pressure Mean [Sitting (for 1 minute prior to obtaining)] 105 Blood Pressure Mean [Standing (for 1 minute prior to obtaining)] 103 Pulse Ox 99 Oxygen Delivery Method Positive well nourished and well developed General Appearance ED: well developed and NAD HEENT Reports moist mucous membranes normocephalic and atraumatic Eyes PERRL and EOMs intact bilaterally Neck full ROM and supple Resp normal respiratory effort and clear to auscultation bilaterally Cardio regular rate, regular rhythm and no murmurs Rate: Negative for bradycardia or tachycardic GI non-tender and non-distended Auscultation: normoactive bowel sounds Palpation: soft Back/Spine no CVA tenderness General Back: other FROM Extremity normal to inspection General Extremety ED: Negative for edema, pulses abnormal or tenderness General Extremity: Negative for edema or pulses abnormal Neuro CN's II-XII intact bilaterally and no sensory deficits noted Neuro Narrative: Oriented to person and people in the room and place at baseline mental status Sensorium / Orientation: awake and alert Motor Exam: strength 5/5 throughout Psych mental status grossly normal Skin no rashes or lesions noted and no wounds MDM MDM MDM Narrative Medical decision making narrative: Assessment: The patient is a 74-year-old male with PMH of Parkinson's disease presenting for transient hypotension (64/49 at home) detected by his visiting physical therapist. He reports mild generalized weakness without presyncope. Initial orthostatics in the ED are positive, but subsequent vitals have normalized to 129 systolic after oral hydration. Labs show mild renal insufficiency without meeting REYNALDO criteria; lactate normal, CBC unremarkable, UA without infection. EKG shows sinus rhythm and is normal. Given the exam and work-up, orthostatic hypotension likely secondary to relative mild dehydration is the working diagnosis. Plan: - Administered 1 L IV normal saline for volume repletion. - Permitted home carbidopa/levodopa dosing while in ED. - Oral fluids encouraged. - Disposition: will discharge home with family if repeat orthostatics are negative and blood pressure remains stable; family agrees with plan. Diagnostics: - Orthostatic vital signs on arrival: positive (lying 153 systolic, standing 102 systolic) - Basic metabolic panel: mild renal insufficiency; lactate normal. - CBC: within normal limits. - Urinalysis: no evidence of infection. - EKG interpreted by Lloyd kline: sinus rhythm with no injury pattern, no rmal. Reevaluations: - Blood pressure stable at 129 systolic after IV fluids w/ negative repeat orthos; patient asymptomatic; family comfortable with discharge plan. Of note also reviewed possible interactions of terbinafine with metabolism of his previous medications, seen none I advised him to continue all of his medications as prescribed. Lab Data Attestation: I reviewed the patient's lab results. Labs: Laboratory Results - last 24 hr 04/13/25 04/13/25 13:00 13:40 WBC 8.8 RBC 4.72 Hgb 13.8 Hct 41.5 MCV 87.9 MCH 29.2 MCHC 33.3 RDW Std Deviation 42.8 RDW Coeff of [place] 13.2 Plt Count 228 MPV 9.3 Immature Gran % (Auto) 0.300 Neut % (Auto) 67.9 Lymph % (Auto) 22.1 [place] % (Auto) 8.5 Eos % (Auto) 1.0 Baso % (Auto) 0.2 Absolute Neuts (auto) 6.0 Absolute Lymphs (auto) 1.94 Nucleated RBC % 0 Sodium 140 Potassium 4.3 Chloride 104 Carbon Dioxide 26.3 Anion Gap 10 BUN 25 H Creatinine 1.26 H Estim Creat Clear Calc 53.14 Est GFR (MDRD) Non-Af 60 BUN/Creatinine Ratio 19.7 Glucose 86 Lactic Acid < 1.0 Calcium 9.0 Urine Color Yellow Urine Clarity Clear Urine pH 6.0 Ur Specific [place] 1.010 Urine Protein 15 H Urine Glucose (UA) Normal Urine Ketones Negative Urine Occult Blood Negative Urine Nitrite Negative Urine Bilirubin Negative Urine Urobilinogen Normal Ur Leukocyte Esterase 25 H Urine RBC 0 SEEN Urine WBC 0-5 SEEN Ur Squamous Epith Cells 0 SEEN Urine Bacteria 0 SEEN Urine Mucus 0 SEEN Rhythm Strip Rhythm Strip: Sinus Rhythm Rate: 79 Ectopy: None EKG Initial EKG: Attestation: I personally reviewed and interpreted this EKG as follows: Interpretation: Sinus Rhythm and No Acute Injury Pattern Comments: Nml axis & intervals; nml EKG Prior EKG tracings: available for review Prior: Unchanged Discharge Plan Triage Chief Complaint: Hypotension Other Complaint: Wound ED Provider: Lloyd Spear Dx/Rx/DC Orders Clinical Impression: Orthostatic hypotension, Mild dehydration, Onychomycosis of left great toe, Parkinson's disease Instructions: ED Hypotension, Orthostatic Prescriptions: No Action carbidopa-levodopa 25-100 mg tablet 2 tab PO TID rivastigmine 13.3 mg/24 hour patch 24 hour 1 patch topical DAILY midodrine 5 mg tablet 5 mg PO DAILY terbinafine HCl 250 mg tablet 250 mg PO DAILY memantine 10 mg tablet 10 mg PO BID Primary Care Provider: Dave Thomas Referrals: Dave Thomas MD [Primary Care Provider, Family Practice] - 3-5 Days if not improving Print Language: [place] Disposition Disposition: Home, Self Care Discharge Date/Time: 04/13/25 16:55
[2025-04-13] MEDS: 0.9% Normal Saline (1000mL) 1,000 ML 1000 ML IV (12:56)
[2025-04-13 13:09] LABS: Hematocrit 41.5 % (40-54); Hemoglobin 13.8 g/dL (13.0-16.5); Immature Granulocytes Count 0.030 X10^3/uL (0.0-0.0); Mean Corp Hgb Conc 33.3 g/dL (32-36); Mean Corpuscular Volume 87.9 fL (80-94); Mean Platelet Vol. 9.3 fl (6.2-12.0); NRBC Flagged by Analyzer 0 % (0-5); Platelet Count 228 K/mm3 (150-450); RBC Distribution Width CV 13.2 % (11.6-14.6); RBC Distribution Width SD 42.8 fl (35.1-43.9); Red Blood Count 4.72 M/mm3 (4.6-6.2); White Blood Count 8.8 K/mm3 (4.4-11.0)
[2025-04-13 13:40] LABS: Anion Gap 10 (5-15); BUN 25 mg/dL (4-19); BUN/Creat Ratio 19.7 RATIO (10-20); Calcium,Total 9.0 mg/dL (7.6-11.0); Carbon Dioxide 26.3 mmol/L (21.0-32.0); Chloride 104 mmol/L (98-108); Estimated Creatinine Clearance 53.14 ml/min (50-250); Glucose 86 mg/dL (70-99); Potassium 4.3 mmol/L (3.3-5.1)
[2025-04-13 13:47] LABS: Mucous, Urine 0 SEEN /hpf (<or=2+); Red Blood Cells-Urine 0 SEEN /hpf (0-5); Squamous Epithelial Cells - UA 0 SEEN /hpf (0-5)
[2025-04-13 13:57] LABS: Color, Urine Yellow (Yellow); Glucose, Dipstick Normal (Normal); Ketone-Dipstick Negative (Negative); Leukocyte Esterase-Dipstick 25 /ul (Negative); Nitrite-Dipstick Negative (Negative); Occult Blood-Urine Negative /ul (Negative); Protein-Dipstick 15 mg/dl (Negative); Specific Gravity, Urine 1.010 (1.002-1.030); Urine Bilirubin Dipstick Negative (Negative)
== END 2025-04-13 16:55 | disposition home or self-care (01) ==
PROVIDERS: Emergency Provider Emergency Medicine; PCP Family Medicine; Visit Provider Emergency Medicine
DX: I95.1 Orthostatic hypotension (principal); G20.A1 Parkinson's disease without dyskinesia, without mention of fluctuations; Z87.891 Personal history of nicotine dependence; N28.9 Disorder of kidney and ureter, unspecified; E86.0 Dehydration; B35.1 Tinea unguium; R53.83 Other fatigue
CPT/HCPCS: 80048; 81001; 83605; 85025; 93005; 96360; 96361; 99285